=== PATIENT | female | born 1970 ===

== ENCOUNTER → 2025-04-15 10:04 | Outpatient (BNVA) | payer MEDICARE, SELFPAY | PROVIDERS: Family Provider Pediatrics; PCP Pediatrics; Visit Provider Podiatrist Foot & Ankle Surgery | DX: S92.414A Nondisplaced fracture of proximal phalanx of right great toe, initial encounter for closed fracture (principal); W01.0XXA Fall on same level from slipping, tripping and stumbling without subsequent striking against object, initial encounter | CPT/HCPCS: 99204 ==

== ENCOUNTER → 2025-05-07 11:07 | Outpatient (BNVA) | payer MEDICARE, SELFPAY | PROVIDERS: Family Provider Pediatrics; PCP Pediatrics; Visit Provider Podiatrist Foot & Ankle Surgery | DX: S92.411A Displaced fracture of proximal phalanx of right great toe, initial encounter for closed fracture (principal); W01.0XXA Fall on same level from slipping, tripping and stumbling without subsequent striking against object, initial encounter | CPT/HCPCS: 73630; 99213 ==